=== PATIENT | male | born 1970 | race Caucasian/White ===

== ENCOUNTER 2016-12-16 12:43 | Emergency (ER) | payer BC, OTHER ==
[2016-12-16 12:57] VITALS: BP 141/109
[2016-12-16] MEDS ORDERED: Lidocaine 1% 10 ML MDV INJECT ONE ×2 (12:57→13:45)
[2016-12-16] MEDS ORDERED: Diphtheria,Pertussis(Acell),Tetanus Vaccine 0.5 ML SDV inactive IM ONE (13:01)
--- NOTE | 2016-12-16 13:01 | EDM.PDOC ---
ED HPI GENERAL MEDICAL PROBLEM - General Chief Complaint: Upper Extremity Injury/Pain Stated Complaint: SENT BY [facility] Time Seen by Provider: 12/16/16 12:56 Source of Information: Reports: Patient History Limitations: Reports: No Limitations - History of Present Illness INITIAL COMMENTS - FREE TEXT/NARRATIVE: 46-year-old male reports to the ED with a acute injury to his right hand. States he and another fellow were carrying a heavy sheet of metal. The sheath of metal got away on and skated across his hand resulting in multiple lacerations almost shredding the skin on the volar aspect of his right hand on the ulnar aspect. His hand was slammed up against a done a piece of metal therefore there was a component of blunt trauma. Injury occurred about 0930 hrs. this morning. He is unclear when his last tetanus tonsils so it was administered. Denies any other injuries. He did attend the occupational health clinic who then referred him to the ED. Patient is right hand dominant. Onset: Today Onset Date: 12/16/16 Onset Time: 09:30 Duration: Hour(s): Location: Reports: Upper Extremity, Right (Rt hand ) Quality: Reports: Ache, Burning, Stabbing Severity: Moderate Improves with: Reports: None Worsens with: Reports: None Context: Reports: Trauma. 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 [No Known Home Meds] 12/16/16 [History] Social & Family History - Tobacco Use Smoking Status *Q: Never Smoker - Alcohol Use Days Per Week of Alcohol Use: 0 - Recreational Drug Use Recreational Drug Use: No - Living Situation & Occupation Living situation: Reports: Occupation: Employed Review of Systems - Review of Systems Review Of Systems: See Below Constitutional: Reports: No Symptoms Eyes: Reports: No Symptoms Ears: Reports: No Symptoms Nose: Reports: No Symptoms Mouth/Throat: Reports: No Symptoms Respiratory: Reports: No Symptoms Cardiovascular: Reports: No Symptoms GI/Abdominal: Reports: No Symptoms Genitourinary: Reports: No Symptoms Musculoskeletal: Reports: No Symptoms Skin: Reports: No Symptoms Neurological: Reports: No Symptoms Psychiatric: Reports: No Symptoms ED EXAM, GENERAL - Physical Exam Exam: See Below Exam Limited By: No Limitations General Appearance: Alert, WD/WN, No Apparent Distress Cardiovascular: Normal Peripheral Pulses, Regular Rate, Rhythm, No Edema, No Murmur, Other (Blood pressure is elevated at 140 06/28/08 on initial assessment. He will be monitored while he is in the department.) Peripheral Pulses: 3+: Radial (L), Radial (R) GI/Abdominal: Normal Bowel Sounds, Soft, Non-Tender, No Organomegaly, No Distention Extremities: Other (Examination of his right palmar hand reveals shredded skin in the mid volar aspect over the fifth metacarpal. There is approximately 2.5 cm in width and 3 cm in length. There are multiple lacerations to the skin being shredded in this area and debridement will be required with primary laceration repair. He can make a full fist. He has sensation to all of his fingers. There is no clinical evidence of tendon injury. Injuries appear to be superficial primarily to the skin and subcutaneous tissues.) Neurological: Alert, Oriented, CN II-XII Intact, Normal Cognition Psychiatric: Normal Affect, Normal Mood Skin Exam: Warm, Dry, Intact, Normal Color, No Rash ED TRAUMA EXTREMITY PROCEDURES - Laceration/Wound Repair Right Lateral Ventral Hand Lac/Wound Length In cm: 4.5 (Multiple lacerations ulnar aspect volar hand.) Appearance: Subcutaneous, Irregular, Mildly Contaminated Distal NVT: Neuro & Vascular Intact, No Tendon Injury Anesthetic Type: Local Local Anesthesia - Lidocaine (Xylocaine): 1% Plain Local Anesthetic Volume: Other (12 mL) Skin Prep: Saline Saline Irrigation (cc's): 150 Exploration/Debridement/Repair: Wound Explored, Moderate Debridement (A good deal of the debridement was carried out both of shredded skin and adipose tissue.), Wound Margins Revised Closed With: Sutures Suture Size: 4-0 # of Sutures: 12 Suture Type: Nylon, Interrupted, Running Course - Vital Signs Last Recorded V/S: Last Vital Signs Temp 36.6 C 12/16/16 12:51 Pulse 72 12/16/16 12:51 Resp 17 12/16/16 12:51 BP 141/109 H 12/16/16 12:51 Pulse Ox 95 12/16/16 12:51 - Orders/Labs/Meds Orders: Active Orders 24 hr Category Date Time Status Vaccines to be Administered [RC] PER UNIT ROUTINE Care 12/16/16 13:01 Active Hand Comp Min 3V Rt [CR] Stat Exams 12/16/16 12:56 Taken Meds: Medications Discontinued Medications Generic Name Dose Route Start Last Admin Trade Name Freq PRN Reason Stop Dose Admin Diphtheria/Tetanus/Acell Pertussis 0.5 ml 12/16/16 13:01 12/16/16 14:04 Boostrix IM 12/16/16 13:02 0.5 ml .ONCE ONE Administration Lidocaine HCl 10 ml 12/16/16 12:57 12/16/16 13:45 Xylocaine 1% INJECT 12/16/16 12:58 10 ml ONETIME ONE Administration Lidocaine HCl Confirm 12/16/16 13:45 12/16/16 13:45 Xylocaine 1% Administered 12/16/16 13:46 Not Given Dose 10 ml .ROUTE .STK-MED ONE Lidocaine HCl 10 ml 12/16/16 13:45 12/16/16 13:45 Xylocaine 1% INJECT 12/16/16 13:46 10 ml ONETIME ONE Administration - Radiology Interpretation Free Text/Narrative:: 46-year-old male presents the ED with an injury to his right hand that occurred in the workplace about 0930 hrs. this morning. Miscarrying a sheet of metal and it slipped away from him resulting in shortening of the skin over the volar aspect of his right hand along the ulnar aspect. This injury is shredded the skin mid palmar aspect over the fifth metacarpal. There appears to be no neurovascular injuries. He can move all his fingers and make a full fist without issue. Whether injuries identified. He will require a tetanus diphtheria and pertussis vaccine. Plan is to x-ray the hand to make sure the fifth metacarpal is okay to the nature of the trauma. Then he will require debridement and repair and repair of the lacerations. - Re-Assessments/Exams Free Text/Narrative Re-Assessment/Exam: 12/16/16 13:23 x-ray of the right hand is negative for any bony injuries. 12/16/16 14:13 lacerations of the ulnar aspect of the right hand were repaired under local anesthetic using 1% lidocaine. The skin was shredded in multiple areas and had to be debrided. Multiple areas of adipose tissue protruding from the wound also had to be divided. I was able to define wound edges in this fashion that allowed appropriate repair of a stellate laceration. There is one area of superficial abrasion or skin loss approximately 1.5 cm in length and width. 2 lacerations were really identified that required suture repair. Length of repair was 4.5 cm using 12 4-0 Ethilon sutures. Patient will be off work for the next 3-4 days due to his hand injuries as it's going to swell and he needs complete rest until the swelling goes down therefore leaving him off work until December 21. At that time he may return to work of alternative work duties are available which means no lifting carrying pushing pulling with the right hand. He feels area are several jobs that he would be able to do in the workplace. Sutures will need to be removed in 10 days' time. TDap was updated today. Departure - Departure Time of Disposition: 14:06 Disposition: Home, Self-Care 01 Condition: Fair Clinical Impression: Laceration of right hand Qualifiers: Encounter type: initial encounter Foreign body presence: without foreign body Qualified Code(s): S61.411A - Laceration without foreign body of right hand, initial encounter - Discharge Information Referrals: Ahmet Kelly MD [Primary Care Provider] - Forms: ED Department Discharge, Return to Work/School Form Additional Instructions: Evaluation in the emergency room today in regards to work related injury involving the right hand. Steel plate slid across the ulnar aspect of your volar hand resulting in multiple lacerations and shredding of the skin. X-rays did not reveal any bony involvement and there is no evidence of tendon or nerve involvement in the wound. The wound required a good deal of debridement to remove shredded pieces of skin and then was primarily repaired using 4-0 nylon sutures. Two separate lacerations were identified and sutured under local anesthetic. Total length of laceration repair was 4.5 cm. Worked 14 sutures were used in all. Initial dressing is to remain in place for the next 48 hours. After this the wound is to be cleansed daily with soap and water. Showering is okay. Then apply topical antibiotic bacitracin or Polysporin to the wound and bandage to keep it clean and protected. After 4 days if the wound is not going to get dirty it may be left open to the air as it does tend to heal better. Suggest off work until Wednesday next week. May return to work if alternative work duties are available where he would not have to use her right hand for lifting pushing pulling or carrying etc. until the wound is healed. Sutures will need to be removed in 10 days' time. Use Motrin 600 mg every 6 hours necessary for pain relief. Return to medical care if any signs of infection occur such as redness swelling or increased pain or obvious pus. Tetanus diphtheria and pertussis vaccine was updated today and is good for the next 10 years. - My Orders Last 24 Hours: My Active Orders 12/16/16 12:56 Hand Comp Min 3V Rt [CR] Stat 12/16/16 13:01 Vaccines to be Administered [RC] PER UNIT ROUTINE - Assessment/Plan Last 24 Hours: My Active Orders 12/16/16 12:56 Hand Comp Min 3V Rt [CR] Stat 12/16/16 13:01 Vaccines to be Administered [RC] PER UNIT ROUTINE
[2016-12-16] MEDS ORDERED: Lidocaine 1% 10 ML MDV ONE (13:45)
--- NOTE | 2016-12-16 14:30 | CR ---
Right hand: Four views of the right hand were obtained. Soft tissue injury is seen along the medial surface of the hand at the metacarpal level. No opaque foreign object is seen. No fracture or other bony abnormality is seen. Impression: 1. Soft tissue injury. No opaque foreign object or bony abnormality is identified. Diagnostic code #2
== END 2016-12-16 14:25 | disposition home or self-care (01) ==
LOC: JD.ED 12:43
DX: S61.411A Laceration without foreign body of right hand, initial encounter (principal); Z88.1 Allergy status to other antibiotic agents; Z91.013 Allergy to seafood; W45.8XXA Other foreign body or object entering through skin, initial encounter; Y93.89 Activity, other specified; Y99.0 Civilian activity done for income or pay; Z23 Encounter for immunization
CPT/HCPCS: 12002; 13132; 73130-26-RT; 73130-RT; 90471; 90715; 99283; 99283-25

== ENCOUNTER 2024-08-12 10:34 | Emergency (ER) | payer OTHER ==
[2024-08-12 10:49] VITALS: BP 165/104; PULSE 97
[2024-08-12] MEDS: Ketorolac 60 MG/2 ML SDV IM ONE (11:32)
== END 2024-08-12 12:39 | disposition home or self-care (01) ==
LOC: JD.ED 10:34
DX: S13.4XXA Sprain of ligaments of cervical spine, initial encounter (principal); M19.011 Primary osteoarthritis, right shoulder; I10 Essential (primary) hypertension; E78.00 Pure hypercholesterolemia, unspecified; Z86.16 Personal history of COVID-19; Z88.0 Allergy status to penicillin; Z91.013 Allergy to seafood; V49.49XA Driver injured in collision with other motor vehicles in traffic accident, initial encounter; Y93.89 Activity, other specified
CPT/HCPCS: 72125; 73030; 96372; 99284; J1885; 99283